=== PATIENT | female | born 1985 | race Hispanic/Latino ===

== ENCOUNTER 2023-10-28 09:54 | Day surgery (SDC) | payer BC ==
[2023-10-27 12:24] VITALS: BMI 25.6
[2023-10-28] MEDS ORDERED: Bupivacaine PF 0.5% 30 ML VIAL ONE (12:26)
[2023-10-28] MEDS ORDERED: fentaNYL 50 mcg/mL 1 mL Vial ONE (12:26)
[2023-10-28] MEDS ORDERED: Midazolam HCl 2 mg/2 ml Vial ONE (12:26)
[2023-10-28] MEDS ORDERED: CEFAZOLIN 2 GM VIAL ONE (14:00)
[2023-10-28] MEDS ORDERED: Sodium Chloride 0.9% 100 ML ONE (14:00)
[2023-10-28] MEDS ORDERED: fentaNYL PF 100 MCG/2 ML SYRINGE ONE (14:12)
[2023-10-28] MEDS ORDERED: PROPOFOL 20 ML ONE ×2 (14:12→14:23)
[2023-10-28] MEDS ORDERED: Lidocaine 1% PF 5 ML VIAL ONE (14:22)
[2023-10-28] MEDS ORDERED: Albuterol HFA (OR) 200 PUFF INH ONE (14:22)
[2023-10-28] MEDS ORDERED: Dexmedetomidine 200 MCG/2 ML VIAL ONE (14:37)
[2023-10-28] MEDS ORDERED: diphenhydrAMINE 50 MG/ML VIAL ONE (14:37)
[2023-10-28] MEDS ORDERED: Dexamethasone 20 MG/5 ML VIAL ONE (14:37)
[2023-10-28] MEDS ORDERED: EPINEPHrine 1 MG/10 ML Abboject SYRINGE ONE (14:40)
[2023-10-28] MEDS ORDERED: PHENYLEPHRINE-NS 100 MCG/ML 10 ML SYRINGE ONE (14:40)
[2023-10-28] MEDS ORDERED: SUCCINYLCHOLINE/SOD CL,ISO/PF 200 MG/10 ML SYRINGE FS ONE (14:41)
[2023-10-28] MEDS ORDERED: Ondansetron PF 4 MG/2 ML Vial ONE (14:41)
[2023-10-28] MEDS ORDERED: Famotidine/PF 20 mg/2ml Vial ONE (14:46)
[2023-10-28] MEDS ORDERED: Meperidine HCl/PF 25 MG (1 mL) VIAL ONE (15:41)
== END 2023-10-28 16:32 | disposition home or self-care (01) ==
LOC: SDC 09:54
PROVIDERS: ATTEND Orthopaedic Surgery
PROC: 0PSH04Z Reposition Right Radius with Internal Fixation Device, Open Approach (ICD-10-PCS; principal; 2023-10-28)
DX: S52.571A Other intraarticular fracture of lower end of right radius, initial encounter for closed fracture (principal); Z79.899 Other long term (current) drug therapy; F17.200 Nicotine dependence, unspecified, uncomplicated; Z91.013 Allergy to seafood; Z91.010 Allergy to peanuts; Z88.7 Allergy status to serum and vaccine; Z91.012 Allergy to eggs; Z88.5 Allergy status to narcotic agent
CPT/HCPCS: C1713; J0171; J0665; J1100; J1200; J2175; J2250; J2405; J2704; J3010; J3490